=== PATIENT | male | born 1955 | race Caucasian/White ===

== ENCOUNTER 2016-10-24 05:55 | Inpatient (IN) | payer BC ==
[2016-10-24] MEDS ORDERED: BUPIVACAINE 0.5% 30 ML VIAL ONE ×2 (06:32→09:04)
[2016-10-24] MEDS ORDERED: LIDOCAINE 1% 30 ML VIAL (PRESERVATIVE FREE) ONE ×2 (06:32→09:04)
[2016-10-24 06:38] LABS: BLOOD UREA NITROGEN 13 MG/DL (9-20); CALCIUM 8.6 MG/DL (8.4-10.2); CALCULATED OSMOLALITY 273 MOs/Kg (270-290); CHLORIDE 108 mEq/L (98-107); GLUCOSE 90 mg/dL (70-99); SODIUM LEVEL 142 mEq/L (137-146)
[2016-10-24] MEDS ORDERED: HYDROmorphone 1 MG INJECTION IV PRN ×4 (06:54→14:24)
[2016-10-24] MEDS ORDERED: ONDANSETRON HCL 4 MG ODT TAB PO PRN (06:54)
[2016-10-24] MEDS ORDERED: MEPERIDINE 25 MG/ML TUBEX IV PRN (06:54)
[2016-10-24] MEDS ORDERED: LABETALOL 20 MG/4 ML SYRINGE IV PRN (06:54)
[2016-10-24] MEDS ORDERED: ONDANSETRON HCL 4 MG/2 ML VIAL IV PRN (06:54)
[2016-10-24] MEDS ORDERED: FENTANYL 100 MCG/2 ML VIAL IV PRN ×2 (06:54)
[2016-10-24] MEDS ORDERED: hydrALAZINE 20 MG/ML VIAL IV PRN (06:54)
--- NOTE | 2016-10-24 06:58 | HIM.ANES ---
Anesthesia Evaluation & Plan Diagnoses: UNILATERAL PRIMARY OSTEOARTHRITIS, LEFT KNEE (10/24/16) - Focused Review of Systems Cardiac History: Yes: Hx Hypertension (IMPROVED AFTER STOPPED DRINKING ALCOHOL) , Hx Cardiac Disorders, Hx Abnormal Cholesterol/Hyperlipidemia (IMPROVED AFTER HE STOPPED DRINKING) HEENT: Yes: Hx Vision Problem (reading glasses), Hx Ear Problem (OCCASIONAL RINGING IN EARS DUE TO JOB..), Other HEENT Problems Hx Other HEENT Problems: ALLERGIC RHINNITIS Respiratory: Yes: Hx Asthma (CHILDHOOD) Gastrointestinal: Yes: Hx Gastroesophageal Reflux Disease, Hx Gastrointestinal Disorders, Hx Colonoscopy, Hx Endoscopy (05/10/[address] ZAMBRANO) Neurological/Musculoskeletal: Yes: Hx Back Pain (MILD CERVICAL STENOSIS PER CERVICAL MRI), Hx Neurological Disorders Other Neurological Problems: RESTLESS LEG SYNDROME Psychological: Yes Hx Mental/Emotional Disorders HX Other Psyco/Soc Problems: INSOMNIA.. WORKS THIRD SHIFT.. SLEEPS ONLY 3 HOURS PER NIGHT Blood/Autoimmune: Yes: Hx Anemia (IRON DEFICIENCY/Thrombocytopenia) No: Hx AIDS, Hx Hepatitis (type) Smoking Status: Never smoker Past Social History: Denies: Substance Use Disorder Hx Stress Test (date): Yes Hx Echocardiogram (date): Yes (2015 MODERATE MR, MILD TR, PULM HTN RELATED TO CIRHOSIS PER DR. WEBER) Surgical History: Yes: Knee (RIGHT TKA 07/2016), Other (BILATERAL LOWER LEG ORTHO FX REPAIRS) - Focused Physical Exam Mallampati: Class II Thyromental Distance: Greater than 3 Neck: Full Range of Motion Cardiovascular/Chest: Normal Respiratory: Lungs clear Any problems with anesthesia, including nausea and vomiting?: No Any relatives with a history of Malignant Hyperthermia?: No Does the patient have a history of Motion Sickness-: No Other: Problem List Problem Status Onset Anemia in chronic illness Acute Bilateral edema of lower extremity Acute Cervical radiculopathy at C5 Acute Iron deficiency anemia Acute Status post total right knee replacement using cement Acute Transaminitis Acute Venous stasis dermatitis Acute Alcoholic cirrhosis of liver Chronic HTN (hypertension) Chronic Thrombocytopenia Chronic CBC/BMP/Other 10/24/16 06:13 Allergies Allergy/AdvReac Type Severity Reaction Status Date / Time acetaminophen [From Tylenol] Allergy Headache Verified 10/03/16 10:34 Penicillins Allergy Edema-Local Verified 10/03/16 10:34 ized Home Medications Medication Instructions Recorded Last Taken Type Furosemide [Lasix] 40 mg PO DAILY PRN 05/05/16 2 Months Ago History Gabapentin 100 mg PO .DAILY W/SUPPER 05/05/16 07/24/16 21:27 History Tramadol HCl 50 mg PO Q12H PRN 05/05/16 07/20/16 08:00 History Trazodone HCl 25 mg PO HS 05/05/16 07/24/16 21:26 History Omeprazole [Prilosec] 20 mg PO DAILY 05/10/16 07/25/16 05:10 History Cyanocobalamin (Vitamin B-12) 1,000 mcg PO DAILY 06/15/16 07/25/16 12:46 History [B-12] Ferrous Sulfate [Iron] 325 mg PO BID 06/15/16 07/25/16 12:45 History Multivitamin [One Daily 1 each PO DAILY 06/15/16 07/25/16 12:45 History Multivitamin] 1 cap Lisinopril 20 mg PO BID 07/21/16 07/22/16 08:17 History Loratadine [Claritin] 10 mg PO DAILY 07/21/16 07/25/16 08:20 History Aspirin (OrangeEnteric Coated) 325 mg PO DAILY 10/03/16 Unknown History [Ecotrin] Height and Weight Patient's height 6 ft 4 in Patient's weight 89.811 kg BMI 24.5 - Anesthetic Plan Anesthesia Type: General ASA Class: 3 -: I have examined this patient and reviewed the medical record. The patient has been assessed prior to anesthesia. Risks and benefits of anesthesia and anesthetic technique options have been discussed and all questions answered. The patient accepts the risk and desires me to proceed with the planned anesthetic.
[2016-10-24] MEDS ORDERED: TRANEXAMIC ACID 1,000 MG in NS 100 ML IV ONE (07:00)
[2016-10-24] MEDS ORDERED: CEFAZOLIN 1 GM VIAL ONE (07:11)
[2016-10-24] MEDS: VANCOMYCIN 1,000 MG VIAL INSTILL ONE ×2 (07:29→08:06)
--- NOTE | 2016-10-24 09:25 | HIMOPRPT ---
DATE OF PROCEDURE: 10/24/16 PREOPERATIVE DIAGNOSIS: Left knee degenerative arthritis. POSTOPERATIVE DIAGNOSIS: Left knee degenerative arthritis. PROCEDURE PERFORMED: Left total knee replacement. SURGEON: Bhanu Calix MD. COVERSTITCH MACHINE OPERATOR: CEDRIC Correia. ANESTHESIA: General endotracheal anesthesia. TOURNIQUET TIME: 63 minutes. IV FLUIDS: Crystalloids ESTIMATED BLOOD LOSS: 150 ml. SPECIMENS: Bone cut. COMPLICATIONS: None. IMPLANTS: 1. Titanium Victoria total knee replacement system size 6 femoral component, cruciate substituting 2. CR tibial base plate with a titanium stem size 6. 3. A 38-mm asymmetric polyethylene insert patella. 4. 13 mm polyethylene insert BRIEF HISTORY: CHARLOTTE SANTOS is a 61 year-old M patient. Patient had a history of prior bilateral tibia fracture as a teenager. He had bilateral knee degenerative arthritis and underwent right total knee replacement 3 months ago with good outcome. Patient wanted to proceed with left total knee replacement. Patient had previously tried and failed conservative treatment including oral anti-inflammatory medication, activity modification as well as intra-articular cortisone injection.. The patient understood that the risks involved in surgery include, but are not limited to risk of infection, damage to the nerve, blood vessel, need for further surgery, continued pain, DVT, pulmonary embolism , stroke, and even . The patient volunteered an informed consent. The patient was seen on the day of surgery in preop holding area. Surgical site was marked. The patient was then wheeled back into the operating room. DESCRIPTION OF THE PROCEDURE: The patient was placed supine on the operating table. General endotracheal anesthesia was administered. Proper time-out was performed. 2 g of IV Ancef were given. Left lower extremity tourniquet above the knee was applied. Left lower extremity was scrubbed with Betadine brush followed by prep with ChloraPrep. We started with a midline approach. Skin and deep fascia were incised. Medial and lateral flaps were created. We then performed a medial parapatellar arthrotomy. The patella was everted. Examination of the knee showed advanced tricompartmental osteoarthritis. We then proceeded with the preparation of the distal femur. Intramedullary femoral cutting guide was used. This was set at 5 degrees of valgus. After making the distal femoral cut, the distal femur was sized at size 6. We then used a size 6 cruciate substituting cutting block and made the anterior femur, posterior femur , anterior chamfer, and posterior chamfer cuts. We then proceeded with the preparation of the proximal tibia. The medial and lateral menisci as well as anterior cruciate ligaments were taken down. We performed recess of the posterior cruciate ligaments. The proximal tibial cut was made using the extramedullary tibial cutting guide. We then used a spacer to see our flexion and extension gaps, and these were symmetric. We then sized the proximal tibia at size 6. We used a size 6 tibial preparation guide and prepared the proximal tibia. We then trailed with size 6 femur, size 6 tibia and found adequate stability. We then proceeded with the preparation of the patella. Patella was sized down to size 14 mm remaining patella. We then used an eccentric patellar trial. We used a 13-mm poly insert trial. The knee was carried through range of motion, and the knee was stable with good mechanical axis. We then proceeded with removal of the trial components. The bone cut area was irrigated with normal saline. We then used bone cement to fix the tibial component with the stem. This was followed by placement of the femoral component and the patellar component. The cement was allowed to settle. Excess cement was removed. The 13- mm tibial polyethylene insert was used. The tourniquet was released. Hemostasis was achieved. The wound was closed in layers. A 1/8-inch Hemovac drain was used. The patient tolerated procedure very well and was taken to the recovery room in a stable condition. DISPOSITION: The patient would be admitted to the Orthopedic Service. The patient would be starting on continuous passive motion machine in the recovery room. The patient would then start physical therapy this afternoon. The patient would be started on [Aspirin 325mg Bid] starting tomorrow.
[2016-10-24] MEDS ORDERED: FUROSEMIDE 40 MG TAB PO PRN (09:29)
[2016-10-24] MEDS ORDERED: SODIUM CHLORIDE 0.9% 3 ML FLUSH FLUSH PRN (09:30)
[2016-10-24] MEDS ORDERED: MAGNESIUM HYDROXIDE 30 ML BOTTLE PO PRN (09:30)
[2016-10-24] MEDS ORDERED: OXYCODONE HCL 5 MG TABLET PO PRN (09:30)
[2016-10-24] MEDS ORDERED: Aluminum;Magnesium;Simethicone 30 ML UDC PO PRN (09:30)
[2016-10-24] MEDS ORDERED: DIPHENHYDRAMINE 50 MG/ML VIAL IV PRN (09:30)
[2016-10-24] MEDS ORDERED: DIPHENHYDRAMINE 25 MG CAP PO PRN (09:30)
[2016-10-24] MEDS ORDERED: [UNRECOGNIZED DRUG - OTHER] SCH (10:00)
[2016-10-24] MEDS ORDERED: SODIUM CHLORIDE 0.9% 3 ML FLUSH FLUSH SCH (10:00)
[2016-10-24] MEDS ORDERED: NS 1,000 ML IV SCH (10:00)
[2016-10-24] MEDS ORDERED: NALOXONE 0.4 MG/ML AMPULE IV SCH (10:00)
--- NOTE | 2016-10-24 10:05 | DIRPT ---
CLINICAL DATA: Postop knee replacement EXAM: PORTABLE LEFT KNEE - 1-2 VIEW COMPARISON: 11/11/2012 FINDINGS: Total knee replacement in satisfactory position and alignment. No fracture or complication. Chronic healed fracture proximal tibia below the prosthesis. IMPRESSION: Satisfactory knee replacement. Electronically Signed By: Angel Ram M.D. On: 10/24/2016 10:02
[2016-10-24] MEDS: OXYCODONE HCL 5 MG TABLET PO PRN (11:55)
[2016-10-24] MEDS ORDERED: Vaccine Screening Complete SCH (12:00)
[2016-10-24] MEDS: Cefazolin 2gm/50 ml D5W 2 GM/50 ML RTU IV SCH ×2 (12:45→20:24)
[2016-10-24] MEDS: ONDANSETRON HCL 4 MG/2 ML VIAL IV SCH ×2 (12:57→17:40)
[2016-10-24] MEDS: CALCIUM CARBONATE + VITAMIN D 500 MG TAB PO SCH ×2 (12:58→17:36)
[2016-10-24] MEDS: VITAMINS, MULTIPLE CAP PO SCH (12:58)
[2016-10-24] MEDS: CYANOCOBALAMIN (Vitamin B-12) 500 MCG TABLET PO SCH (12:58)
[2016-10-24] MEDS: FERROUS SULFATE 324 MG TAB PO SCH ×2 (13:00→17:36)
--- NOTE | 2016-10-24 15:08 | SC.ANESPOS ---
Post-Anesthesia Note LOC: Fully Awake Post-Anesthesia Assessment: Awake, Returned to Baseline, Hemodynamically Stable , Pain Control Adequate Phase I & II Recovery Complete: Yes Apparent Anesthesia Complication: No : N PACU Discharge Time: 10:45 - Vital Signs Blood Pressure: 164/96 Pulse: 68 Resp Rate: 18 O2 Sat: 98 Temp: 97.9 F - Comments Anesthesia Discharge Time Report Time 10:45
[2016-10-24] MEDS ORDERED: DEXAMETHASONE 4 MG/ML VIAL IV ONE (15:14)
[2016-10-24] MEDS ORDERED: FENTANYL 250 MCG/5 ML VIAL IV ONE (15:14)
[2016-10-24] MEDS ORDERED: LIDOCAINE 100 MG PFS IV ONE (15:14)
[2016-10-24] MEDS ORDERED: SUCCINYLCHOLINE 20 MG/1 ML INJ 10 ML MDV IV ONE (15:14)
[2016-10-24] MEDS ORDERED: PROPOFOL 200 MG/20 ML VIAL IV ONE (15:14)
[2016-10-24] MEDS ORDERED: ONDANSETRON HCL 4 MG/2 ML VIAL IV ONE (15:14)
[2016-10-24] MEDS: Aspirin (Orange Enteric Coated) 325 mg tab PO SCH (17:36)
[2016-10-24] MEDS: Celecoxib 200 MG CAP PO SCH (17:36)
[2016-10-24] MEDS: GABAPENTIN 100 MG CAP PO SCH (17:37)
[2016-10-24] MEDS: SODIUM CHLORIDE 0.9% 3 ML FLUSH FLUSH SCH (17:40)
[2016-10-24] MEDS: OXYCODONE (OxyCONTIN) 10 MG TAB PO SCH (20:23)
[2016-10-24] MEDS: TRAZODONE 50 MG TAB PO SCH (20:24)
[2016-10-24] MEDS: DOCUSATE-SENNA CONCENTRATE TAB PO SCH (20:25)
[2016-10-24] MEDS: LISINOPRIL 20 MG TAB PO SCH (20:25)
[2016-10-24] MEDS ORDERED: Non-Formulary Medication ITEM (Ferrous Sulfate [Iron] 325 MG) PO SCH (21:00)
[2016-10-25] MEDS: ONDANSETRON HCL 4 MG/2 ML VIAL IV SCH ×3 (00:31→05:15)
[2016-10-25] MEDS: Cefazolin 2gm/50 ml D5W 2 GM/50 ML RTU IV SCH (05:13)
[2016-10-25] MEDS: PANTOPRAZOLE 40 MG TAB PO SCH (05:13)
[2016-10-25] MEDS: SODIUM CHLORIDE 0.9% 3 ML FLUSH FLUSH SCH ×2 (05:14→17:38)
--- NOTE | 2016-10-25 06:34 | PCM.ORTHBL ---
- Subjective Post Op Day: 1 Daily Assessment - Patient: Reports: No new complaints, Awake Alert Oriented x4 , Feels better, Tolerating Regular Diet, Voiding without difficulty, Afebrile, Ambulating with Physical Therapist. Denies: Shortness of breath, Nausea, Vomiting - Objective / Physical Exam Vital Signs: Temperature: 98.0 F (10/25/16 04:43) HR: 75 (10/25/16 04:43)RR: 18 (10/25/16 04: 43) BP: 108/62 (10/25/16 04:43)Pulse Ox: 90 (10/25/16 04:43) General: Alert, Oriented x3, Cooperative, No acute distress, Well appearing Musculoskeletal / Extremities: 2 plus Dorsalis Pedis Pulse, Dressing Clean/Dry/ Intact. negative: Tenderness (no calf tenderness) Neurological: Positive Sensation First Dorsal Web Space, Sensation to light touch intact, Extensor Hallicus Longus Intact, Flexor Hallicus Longus Intact, Dorsiflexion Intact, Plantarflexion Intact - Assessment and Plan (1) Status post total left knee replacement using cement Acute Z96.652 - PRESENCE OF LEFT ARTIFICIAL KNEE JOINT Present on Admission: Yes Plan: POD#1 s/p left TKA PT/OT/WBAT TEDS/SCDS/ECASA 325mg BID for 30 days post-op for DVT prophylaxis continue pain management D/C planning, plan for home likely tomorrow
[2016-10-25 06:36] LABS: MPV 10.7 fL (7.4-10.4)
[2016-10-25 07:07] LABS: BLOOD UREA NITROGEN 15 MG/DL (9-20); CALCIUM 8.9 MG/DL (8.4-10.2); CALCULATED OSMOLALITY 267 MOs/Kg (270-290); CHLORIDE 106 mEq/L (98-107); GLUCOSE 103 mg/dL (70-99); SODIUM LEVEL 138 mEq/L (137-146)
[2016-10-25] MEDS ORDERED: Remove Transdermal Scopolamine Patch after 24 hours ONE (08:00)
[2016-10-25] MEDS: LISINOPRIL 20 MG TAB PO SCH ×2 (08:27→20:28)
[2016-10-25] MEDS: Celecoxib 200 MG CAP PO SCH ×2 (08:27→17:38)
[2016-10-25] MEDS: OXYCODONE (OxyCONTIN) 10 MG TAB PO SCH ×2 (08:27→20:28)
[2016-10-25] MEDS: Loratadine 10 MG TAB PO SCH (08:27)
[2016-10-25] MEDS: Aspirin (Orange Enteric Coated) 325 mg tab PO SCH ×2 (08:27→17:38)
[2016-10-25] MEDS ORDERED: CYANOCOBALAMIN 1000 MCG PO SCH (09:00)
[2016-10-25] MEDS ORDERED: MULTIVITAMIN PO SCH (09:00)
[2016-10-25] MEDS ORDERED: Non-Formulary Medication ITEM (Omeprazole 20 MG) PO SCH (09:00)
[2016-10-25] MEDS: FERROUS SULFATE 324 MG TAB PO SCH ×2 (11:00→17:39)
[2016-10-25] MEDS: CYANOCOBALAMIN (Vitamin B-12) 500 MCG TABLET PO SCH (11:23)
[2016-10-25] MEDS: CALCIUM CARBONATE + VITAMIN D 500 MG TAB PO SCH ×2 (11:23→17:38)
[2016-10-25] MEDS: VITAMINS, MULTIPLE CAP PO SCH (11:23)
[2016-10-25] MEDS: GABAPENTIN 100 MG CAP PO SCH (17:38)
[2016-10-25] MEDS: OXYCODONE HCL 5 MG TABLET PO PRN (17:38)
[2016-10-25] MEDS: TRAZODONE 50 MG TAB PO SCH (20:28)
[2016-10-25] MEDS: DOCUSATE-SENNA CONCENTRATE TAB PO SCH (20:28)
[2016-10-26] MEDS: PANTOPRAZOLE 40 MG TAB PO SCH (05:18)
[2016-10-26] MEDS: SODIUM CHLORIDE 0.9% 3 ML FLUSH FLUSH SCH (05:18)
[2016-10-26 06:24] VITALS: BMI 23.0
--- NOTE | 2016-10-26 06:38 | PCM.ORTHBL ---
- Subjective Post Op Day: 2 Daily Assessment - Patient: Reports: No new complaints, Awake Alert Oriented x4 , Still having pain, Pain is less, Tolerating Regular Diet, Afebrile, Ambulating with Physical Therapist (has been limited by O2 sats although did improve with afternoon therapy), Other (denies chest pain). Denies: Voiding without difficulty (difficulty with urination since yesterday), Shortness of breath (although he did have some yesterday), Nausea, Vomiting - Objective / Physical Exam Vital Signs: Temperature: 97.4 F (10/26/16 05:01) HR: 89 (10/26/16 05:01)RR: 18 (10/26/16 05: 01) BP: 128/76 (10/26/16 05:01)Pulse Ox: 93 (10/26/16 05:01) General: Alert, Oriented x3, Cooperative, No acute distress, Well appearing Musculoskeletal / Extremities: 2 plus Dorsalis Pedis Pulse, Dressing Clean/Dry/ Intact. negative: Tenderness (no calf tenderness) Neurological: Positive Sensation First Dorsal Web Space, Sensation to light touch intact, Extensor Hallicus Longus Intact, Flexor Hallicus Longus Intact, Dorsiflexion Intact, Plantarflexion Intact - Assessment and Plan (1) Status post total left knee replacement using cement Acute Z96.652 - PRESENCE OF LEFT ARTIFICIAL KNEE JOINT Present on Admission: Yes Plan: s/p left TKA PT/OT/WBAT. Will observe his symptoms/sats during PT today TEDS/SCDS/ECASA 325mg BID for 30 days post-op. Continue pain management Adding flomax due to retention, consider discharge on flomax if improved urination D/C planning pending progress today
--- NOTE | 2016-10-26 06:43 | PCM.DCS92 ---
- Final/Secondary Discharge Diagnosis (1) Status post total left knee replacement using cement Acute Z96.652 - PRESENCE OF LEFT ARTIFICIAL KNEE JOINT Present on Admission: Yes Plan/Goal/Comment: Continue pain management. Progressing well with PT. WBAT. ECASA 325mg BID for 30 days post-op for DVT prophylaxis. Aquacel dressing to be removed on POD# 7, then daily dry dressing changes as needed. OK to shower with Aquacel in place. To follow-up in office in 2 weeks or earlier as needed. Discharge Disposition: Home Discharge Condition: Stable Cognitive Discharge Status: Unimpaired Fuctional Discharge Status: Walker Assistance, Recent lower extremety joint replacement, Post-op Weakness Physician Follow up/Referrals: Bhanu Calix MD [Staff Physician] - Two Weeks Home Medications/ New Prescriptions: New Aspirin (OrangeEnteric Coated) [Ecotrin] 325 mg PO BID #60 tab Celecoxib (anti-inflammatory) [Celebrex] 200 mg PO DAILY #12 capsule Oxycodone Immediate Release [Oxycodone Immediate Release (OxyIR)] 5 mg PO Q4H PRN #40 tab PRN Reason: Pain Senna Concentrate [Senokot] 2 tab PO QHS #60 tablet Tamsulosin HCl [Flomax] 0.4 mg PO DAILY #1 cap No Action Gabapentin 100 mg PO .DAILY W/SUPPER Furosemide [Lasix] 40 mg PO DAILY PRN PRN Reason: Edema Trazodone HCl 25 mg PO HS Tramadol HCl 50 mg PO Q12H PRN PRN Reason: Pain Omeprazole [Prilosec] 20 mg PO DAILY Multivitamin [One Daily Multivitamin] 1 each PO DAILY Ferrous Sulfate [Iron] 325 mg PO BID Cyanocobalamin (Vitamin B-12) [B-12] 1,000 mcg PO DAILY Loratadine [Claritin] 10 mg PO DAILY Lisinopril 20 mg PO BID Aspirin (OrangeEnteric Coated) [Ecotrin] 325 mg PO DAILY Ergocalciferol (Vitamin D2) [Vitamin D] 50,000 units PO BENNETT Discharge Home Medication List Furosemide [Lasix] 40 mg PO DAILY PRN 05/05/16 [History Confirmed 10/24/16 Last Taken 2 Months Ago] Gabapentin 100 mg PO .DAILY W/SUPPER 05/05/16 [History Confirmed 10/24/16 Last Taken 10/23/16 20:00] Tramadol HCl 50 mg PO Q12H PRN 05/05/16 [History Confirmed 10/24/16 Last Taken 10/23/16 20:00] Trazodone HCl 25 mg PO HS 05/05/16 [History Confirmed 10/24/16 Last Taken 20:00] Omeprazole [Prilosec] 20 mg PO DAILY 05/10/16 [History Confirmed 10/24/16 Last Taken 10/23/16 08:00] Cyanocobalamin (Vitamin B-12) [B-12] 1,000 mcg PO DAILY 06/15/16 [History Confirmed 10/24/16 Last Taken 10/23/16 08:00] Ferrous Sulfate [Iron] 325 mg PO BID 06/15/16 [History Confirmed 10/24/16 Last Taken 10/23/16 08:00] Multivitamin [One Daily Multivitamin] 1 each PO DAILY 06/15/16 [History Confirmed 10/24/16 Last Taken 10/23/16 08:00] Lisinopril 20 mg PO BID 07/21/16 [History Confirmed 10/24/16 Last Taken 05:00] Loratadine [Claritin] 10 mg PO DAILY 07/21/16 [History Confirmed 10/24/16 Last Taken 10/23/16 17:00] Ergocalciferol (Vitamin D2) [Vitamin D] 50,000 units PO BENNETT 10/24/16 [History Confirmed 10/24/16 Last Taken 10/23/16] Aspirin (OrangeEnteric Coated) [Ecotrin] 325 mg PO BID #60 tab 10/25/16 [Rx Last Taken Unknown] Celecoxib (anti-inflammatory) [Celebrex] 200 mg PO DAILY #12 capsule 10/25/16 [ Rx Last Taken Unknown] Oxycodone Immediate Release [Oxycodone Immediate Release (OxyIR)] 5 mg PO Q4H PRN #40 tab 10/25/16 [Rx Last Taken Unknown] Senna Concentrate [Senokot] 2 tab PO QHS #60 tablet 10/25/16 [Rx Last Taken Unknown] Tamsulosin HCl [Flomax] 0.4 mg PO DAILY #1 cap 10/26/16 [Rx Last Taken Unknown] Additional Instructions: DATE: 10/26/16 Post Hospital Stay (Discharge) Joint Precautions Knee Joint Precautions For the safety of your new knee, you should follow these precautions, especially during the first four weeks after surgery. n DO stay active. When your therapist says you are ready, you should take daily walks, increasing your distance as tolerated. n DO use a cane or walker after your knee replacement if you need one. n DO step with the surgery leg first. n DO NOT place a pillow under your knee. n DO NOT sit on low chairs. A chair with arms will allow you to get up and down easier. n DO NOT turn or twist your knee for six to eight weeks. n DO NOT sit longer than one hour at a time as this may make the muscles around your knee stiffen. n DO NOT step until your walker is steady on the floor or ground. n DO NOT do any of the following activities until cleared by your surgeon: 1. Return to work 2. Drive a car 3. Participate in sports 4. Engage in sex 5. Take a tub bath Diet at Discharge: As Tolerated, Regular Activity: As Tolerated, No Heavy Lifting, No Driving Call Office For: Worsening Symptoms, Wound is Draining Pus, Fever over 101 F, Fever over 100.5, Wound is Painful, Wound is Red, Weight Gain (see below), Pain Uncontrolled By Meds, Other (See Details) Discontinue use of:: Alcohol, All Illegal Substances, All Types of Tobacco - DC Summary Notes Hospital Course Note:: Discharge summary on patient named CHARLOTTE SANTOS admitted to [facility] on 10/24/16 by Bhanu Calix MD. Date of discharge is [10/26/16]. Afebrile. Hospital course and surgery uneventful. He did have decreased O2 sats post-operatively which have improved. Continue pain management. Progressing well with PT. WBAT. ECASA 325mg BID for 30 days post-op for DVT prophylaxis. Urinating well since starting flomax today. Aquacel dressing to be removed on POD#7, then daily dry dressing changes as needed. OK to shower with Aquacel in place. Stable for discharge home. To follow-up in office in 2 weeks or earlier as needed. Wound Care Surgical Site: Yes Site Description (if applicable): left knee Dressing/Site Care (if applicable): Aquacel dressing to be removed on POD#7, then daily dry dressing changes as needed. OK to shower with Aquacel in place Medical Equipment (Order must still be written on paper): Walker Remove Transdermal Scopalamine patch if present: YES Medication Instructions: Take Stool Softener, Rx on Chart Continue Ice Packs/Ice Machine to Operative Area: Yes Activity as Tolerated: Yes Weight Bearing: Full Current Dressing: Aquacel Dressing Care: Keep Wound Clean & Dry, Shower with Tegaderm Dsg (Aquacel), No Tub Baths, Other Instructions Below (Aquacel dressing to be removed on POD#7, then daily dry dressing changes as needed. OK to shower with Aquacel in place) - Consults/Home Health Outpatient Consults: Home Health, Physical Therapy - Physical Exam Vital Signs: Initial Vitals Temperature 97.6 F 10/24/16 06:57 Pulse Rate 65 10/24/16 06:57 Respiratory Rate 18 10/24/16 06:57 Blood Pressure 189/99 H 10/24/16 06:57 Pulse Oxygen Saturation 98 10/24/16 06:57 Constitutional: No apparent distress, Alert, Well appearing Oriented to: Time, Person, Place - HEENT Head: Normal - Musculoskeletal Extremities: Pedal Pulse, Other (dressing clean, dry, intact). negative: Calf Tenderness - Neurologic Memory Impaired: Normal Motor Function: Normal Cranial Nerve: Normal Cerebellar: Normal Mood Description: Normal Thought: Coherent Perception: Normal
[2016-10-26 07:12] LABS: MPV 9.7 fL (7.4-10.4)
[2016-10-26] MEDS: TAMSULOSIN HCL 0.4 MG CAP PO SCH ×2 (07:50→07:53)
[2016-10-26] MEDS: Loratadine 10 MG TAB PO SCH (07:50)
[2016-10-26] MEDS: Celecoxib 200 MG CAP PO SCH (07:50)
[2016-10-26] MEDS: LISINOPRIL 20 MG TAB PO SCH (07:51)
[2016-10-26] MEDS: OXYCODONE (OxyCONTIN) 10 MG TAB PO SCH (07:51)
[2016-10-26] MEDS: Aspirin (Orange Enteric Coated) 325 mg tab PO SCH (07:51)
[2016-10-26] MEDS: CALCIUM CARBONATE + VITAMIN D 500 MG TAB PO SCH (12:17)
[2016-10-26] MEDS: FERROUS SULFATE 324 MG TAB PO SCH (12:17)
[2016-10-26] MEDS: VITAMINS, MULTIPLE CAP PO SCH (12:17)
[2016-10-26] MEDS: CYANOCOBALAMIN (Vitamin B-12) 500 MCG TABLET PO SCH (12:17)
[2016-10-26 13:33] VITALS: BP 109/62; PULSE 82; TEMP 97.7
== END 2016-10-26 17:52 | disposition home health service (06) | DRG 470 ==
LOC: SDC 05:55 → MPS3 10:50
PROVIDERS: ADMIT Orthopaedic Surgery; ATTEND Orthopaedic Surgery
PROC: 0SRD0J9 Replacement of Left Knee Joint with Synthetic Substitute, Cemented, Open Approach (ICD-10-PCS; principal; 2016-10-24 07:15)
DX: M17.12 Unilateral primary osteoarthritis, left knee (principal); I10 Essential (primary) hypertension; Z96.651 Presence of right artificial knee joint; Z88.0 Allergy status to penicillin; E78.00 Pure hypercholesterolemia, unspecified; Z87.81 Personal history of (healed) traumatic fracture
CPT/HCPCS: 51701; 51798; 80048; 85027; 86850; 86900; 86901; 97161; 97165; G0237; J0330; J0690; J1100; J2001; J2405; J3010; J3370; J3490; J7030